=== PATIENT | male | born 1935 | race Two or more races ===

== ENCOUNTER 2017-07-14 01:08 | Inpatient (IN) | payer OTHER ==
[~2017-07-14] VITALS: Ht 188 cm; Wt 77.1 kg
[2017-07-14] MEDS ORDERED: FORTAMET1000 MG PO (03:04)
== END 2017-07-28 12:56 | disposition home health service (06) | DRG 981 ==
LOC: ER 01:08 → MEDJ 10:53
PROVIDERS: Radiology Vascular & Interventional Radiology
PROC: 30233N1 Transfusion of Nonautologous Red Blood Cells into Peripheral Vein, Percutaneous Approach (ICD-10-PCS; 2017-07-14)
PROC: BW21ZZZ Computerized Tomography (CT Scan) of Abdomen and Pelvis (ICD-10-PCS; 2017-07-15)
PROC: 0QB10ZZ Excision of Sacrum, Open Approach (ICD-10-PCS; 2017-07-19)
PROC: BD24ZZZ Computerized Tomography (CT Scan) of Colon (ICD-10-PCS; 2017-07-20)
PROC: 06H03DZ Insertion of Intraluminal Device into Inferior Vena Cava, Percutaneous Approach (ICD-10-PCS; principal; 2017-07-21 20:00)
DX: L89.154 Pressure ulcer of sacral region, stage 4 (principal); M86.18 Other acute osteomyelitis, other site; K51.518 Left sided colitis with other complication; Z74.01 Bed confinement status; I10 Essential (primary) hypertension; E11.9 Type 2 diabetes mellitus without complications; E86.0 Dehydration; I69.391 Dysphagia following cerebral infarction; R13.19 Other dysphagia; D64.89 Other specified anemias; Z86.711 Personal history of pulmonary embolism; Z79.01 Long term (current) use of anticoagulants; Z93.1 Gastrostomy status; B96.20 Unspecified Escherichia coli [E. coli] as the cause of diseases classified elsewhere; B95.2 Enterococcus as the cause of diseases classified elsewhere; B37.2 Candidiasis of skin and nail; Z86.718 Personal history of other venous thrombosis and embolism; L89.620 Pressure ulcer of left heel, unstageable; L89.610 Pressure ulcer of right heel, unstageable

== ENCOUNTER 2017-07-30 15:55 | Emergency (ER) | payer OTHER ==
[~2017-07-30] VITALS: Ht 162.6 cm; Wt 77.1 kg
[~2017-07-30 15:55] MED LIST: FORTAMET1000 MG PO
[2017-07-30] MEDS ORDERED: LANTUS SOL100 UNIT/1 SQ (16:37)
[2017-07-30] MEDS ORDERED: TYGACIL50 MG (16:37)
== END 2017-07-30 23:00 | disposition home or self-care (01) ==
LOC: ER 15:55
DX: R41.0 Disorientation, unspecified (principal); L98.429 Non-pressure chronic ulcer of back with unspecified severity; L98.499 Non-pressure chronic ulcer of skin of other sites with unspecified severity; L08.89 Other specified local infections of the skin and subcutaneous tissue; R53.81 Other malaise

== ENCOUNTER 2017-08-02 09:05 | Inpatient (IN) | payer OTHER ==
[~2017-08-02] VITALS: Ht 188 cm; Wt 61.2 kg
[~2017-08-02 09:05] MED LIST changes: +LANTUS SOL100 UNIT/1 SQ; +TYGACIL50 MG
[2017-08-02] MEDS ORDERED: FLUCONAZOLE200 MG (09:25)
[2017-08-02] MEDS ORDERED: AVAPRO300 MG (09:26)
== END 2017-09-29 16:04 | disposition home health service (06) | DRG 463 ==
LOC: ER 09:05 → MEDJ 08-03 10:25 → MEDI 08-03 10:25 → MEDJ 08-07 13:52
PROC: 0QB10ZZ Excision of Sacrum, Open Approach (ICD-10-PCS; 2017-08-05)
PROC: 8E0ZXY6 Isolation (ICD-10-PCS; 2017-08-07)
PROC: 3E0F7GC Introduction of Other Therapeutic Substance into Respiratory Tract, Via Natural or Artificial Opening (ICD-10-PCS; 2017-08-19)
PROC: 30233N1 Transfusion of Nonautologous Red Blood Cells into Peripheral Vein, Percutaneous Approach (ICD-10-PCS; 2017-08-21)
PROC: 02HV33Z Insertion of Infusion Device into Superior Vena Cava, Percutaneous Approach (ICD-10-PCS; 2017-08-28)
PROC: 4A033R1 Measurement of Arterial Saturation, Peripheral, Percutaneous Approach (ICD-10-PCS; 2017-09-06)
PROC: BB24Y0Z Computerized Tomography (CT Scan) of Bilateral Lungs using Other Contrast, Unenhanced and Enhanced (ICD-10-PCS; 2017-09-06)
PROC: 0B9J8ZX Drainage of Left Lower Lung Lobe, Via Natural or Artificial Opening Endoscopic, Diagnostic (ICD-10-PCS; principal; 2017-09-11)
PROC: 0B9F8ZX Drainage of Right Lower Lung Lobe, Via Natural or Artificial Opening Endoscopic, Diagnostic (ICD-10-PCS; 2017-09-11)
PROC: B922ZZZ Computerized Tomography (CT Scan) of Paranasal Sinuses (ICD-10-PCS; 2017-09-12)
PROC: 0JBR0ZZ Excision of Left Foot Subcutaneous Tissue and Fascia, Open Approach (ICD-10-PCS; 2017-09-18)
PROC: 0QB10ZZ Excision of Sacrum, Open Approach (ICD-10-PCS; 2017-09-18)
PROC: 0JBQ0ZZ Excision of Right Foot Subcutaneous Tissue and Fascia, Open Approach (ICD-10-PCS; 2017-09-18)
DX: M86.18 Other acute osteomyelitis, other site (principal); L89.154 Pressure ulcer of sacral region, stage 4; J15.1 Pneumonia due to Pseudomonas; L89.524 Pressure ulcer of left ankle, stage 4; L89.624 Pressure ulcer of left heel, stage 4; L89.614 Pressure ulcer of right heel, stage 4; L89.514 Pressure ulcer of right ankle, stage 4; K92.2 Gastrointestinal hemorrhage, unspecified; I27.82 Chronic pulmonary embolism; A04.72 Enterocolitis due to Clostridium difficile, not specified as recurrent; R04.2 Hemoptysis; J90 Pleural effusion, not elsewhere classified; N17.8 Other acute kidney failure; B37.0 Candidal stomatitis; B37.49 Other urogenital candidiasis; I69.391 Dysphagia following cerebral infarction; R13.19 Other dysphagia; Z74.01 Bed confinement status; E86.0 Dehydration; I10 Essential (primary) hypertension; E11.9 Type 2 diabetes mellitus without complications; B96.1 Klebsiella pneumoniae [K. pneumoniae] as the cause of diseases classified elsewhere; B96.5 Pseudomonas (aeruginosa) (mallei) (pseudomallei) as the cause of diseases classified elsewhere; B95.2 Enterococcus as the cause of diseases classified elsewhere; Z79.01 Long term (current) use of anticoagulants; D63.8 Anemia in other chronic diseases classified elsewhere; Z93.1 Gastrostomy status; R31.0 Gross hematuria; D69.59 Other secondary thrombocytopenia; E88.09 Other disorders of plasma-protein metabolism, not elsewhere classified; E87.6 Hypokalemia; E83.39 Other disorders of phosphorus metabolism; L27.0 Generalized skin eruption due to drugs and medicaments taken internally; T37.3X5A Adverse effect of other antiprotozoal drugs, initial encounter; J01.00 Acute maxillary sinusitis, unspecified; Z78.1 Physical restraint status

== ENCOUNTER 2017-10-03 05:41 | Inpatient (IN) | payer OTHER ==
[~2017-10-03] VITALS: Ht 182.9 cm; Wt 81.6 kg
[~2017-10-03 05:41] MED LIST changes: +AVAPRO300 MG; +FLUCONAZOLE200 MG
== END 2017-12-06 16:12 | disposition other institution (70) | DRG 853 ==
LOC: ER 05:41 → MEDJ 20:00 → ER 10-04 00:17 → MEDJ 10-04 00:17 → MEDI 10-04 00:17 → MEDJ 10-05 12:38
PROVIDERS: Specialist
PROC: 3E0F7GC Introduction of Other Therapeutic Substance into Respiratory Tract, Via Natural or Artificial Opening (ICD-10-PCS; 2017-10-04)
PROC: 0JBR0ZZ Excision of Left Foot Subcutaneous Tissue and Fascia, Open Approach (ICD-10-PCS; 2017-10-06)
PROC: 0JBL0ZZ Excision of Right Upper Leg Subcutaneous Tissue and Fascia, Open Approach (ICD-10-PCS; 2017-10-06)
PROC: 0JBQ0ZZ Excision of Right Foot Subcutaneous Tissue and Fascia, Open Approach (ICD-10-PCS; 2017-10-06)
PROC: 0JB70ZZ Excision of Back Subcutaneous Tissue and Fascia, Open Approach (ICD-10-PCS; principal; 2017-10-06 08:00)
PROC: BB24ZZZ Computerized Tomography (CT Scan) of Bilateral Lungs (ICD-10-PCS; 2017-10-11)
PROC: 0D20XUZ Change Feeding Device in Upper Intestinal Tract, External Approach (ICD-10-PCS; 2017-10-13)
PROC: 30233N1 Transfusion of Nonautologous Red Blood Cells into Peripheral Vein, Percutaneous Approach (ICD-10-PCS; 2017-10-17)
PROC: 0JBL0ZZ Excision of Right Upper Leg Subcutaneous Tissue and Fascia, Open Approach (ICD-10-PCS; 2017-10-19)
PROC: 05H533Z Insertion of Infusion Device into Right Subclavian Vein, Percutaneous Approach (ICD-10-PCS; 2017-10-26)
PROC: 0Y6H0Z1 Detachment at Right Lower Leg, High, Open Approach (ICD-10-PCS; 2017-10-27)
PROC: BB24ZZZ Computerized Tomography (CT Scan) of Bilateral Lungs (ICD-10-PCS; 2017-10-28)
PROC: 4A033R1 Measurement of Arterial Saturation, Peripheral, Percutaneous Approach (ICD-10-PCS; 2017-10-29)
PROC: B246ZZZ Ultrasonography of Right and Left Heart (ICD-10-PCS; 2017-11-22)
PROC: 4A12X4Z Monitoring of Cardiac Electrical Activity, External Approach (ICD-10-PCS; 2017-11-28)
PROC: 0Y6J0Z1 Detachment at Left Lower Leg, High, Open Approach (ICD-10-PCS; 2017-12-01)
PROC: 0JBL0ZZ Excision of Right Upper Leg Subcutaneous Tissue and Fascia, Open Approach (ICD-10-PCS; 2017-12-01)
PROC: 0QB10ZZ Excision of Sacrum, Open Approach (ICD-10-PCS; 2017-12-01)
DX: A41.9 Sepsis, unspecified organism (principal); L89.154 Pressure ulcer of sacral region, stage 4; G93.41 Metabolic encephalopathy; J15.1 Pneumonia due to Pseudomonas; L89.624 Pressure ulcer of left heel, stage 4; L89.614 Pressure ulcer of right heel, stage 4; L89.313 Pressure ulcer of right buttock, stage 3; B37.49 Other urogenital candidiasis; K94.23 Gastrostomy malfunction; E11.52 Type 2 diabetes mellitus with diabetic peripheral angiopathy with gangrene; K92.2 Gastrointestinal hemorrhage, unspecified; J90 Pleural effusion, not elsewhere classified; I47.2 Ventricular tachycardia; M86.18 Other acute osteomyelitis, other site; B37.0 Candidal stomatitis; I70.263 Atherosclerosis of native arteries of extremities with gangrene, bilateral legs; J98.11 Atelectasis; Z74.01 Bed confinement status; I10 Essential (primary) hypertension; E11.649 Type 2 diabetes mellitus with hypoglycemia without coma; E11.65 Type 2 diabetes mellitus with hyperglycemia; Z86.73 Personal history of transient ischemic attack (TIA), and cerebral infarction without residual deficits; Z79.01 Long term (current) use of anticoagulants; R13.19 Other dysphagia; E86.0 Dehydration; D63.8 Anemia in other chronic diseases classified elsewhere; J20.9 Acute bronchitis, unspecified; B95.2 Enterococcus as the cause of diseases classified elsewhere; L89.122 Pressure ulcer of left upper back, stage 2; L89.222 Pressure ulcer of left hip, stage 2; L89.212 Pressure ulcer of right hip, stage 2; Z78.1 Physical restraint status